=== PATIENT | female | born 1965 | race Caucasian/White ===

== ENCOUNTER 2022-11-30 06:56 | Observation (INO) ==
[2022-11-30] MEDS ORDERED: ONDANSETRON INJ 2 MG/ML 2 ML VIAL IV STA (07:19)
[2022-11-30] MEDS ORDERED: MoRPHine SULFATE 4 MG/ML 1 ML CARP\\VIAL IV STA (07:19)
[2022-11-30] MEDS ORDERED: AMPICILLIN/SULBACTAM SOD 3,000 MG in 0.9 % SODIUM CHLORIDE 100 ML IV STA (07:25)
[2022-11-30] MEDS ORDERED: SODIUM CHLORIDE 0.9% 1000ML 1,000 ML IV SCH (07:30)
[2022-11-30] MEDS ORDERED: SODIUM CHLORIDE 0.9% 1000ML 1,000 ML IV ONE (07:44)
[2022-11-30 07:56] LABS: Basophils # (auto) 0.01 K/uL (0-0.2); Basophils % (auto) 0.1 %; Eosinophils # (auto) 0.02 K/uL (0-0.50); Eosinophils % (auto) 0.2 %; Hematocrit (blood only) 44.7 % (37.0-47.0); Hemoglobin 16.3 g/dl (12.0-16.0); Immature Granulocytes # (auto) 0.05 K/uL (0.01-0.20); Immature Granulocytes % (auto) 0.4 %; Lymphocytes # (auto) 1.02 K/uL (1.2-3.4); Lymphocytes % (auto) 8.4 %; Mean Corpuscular Hemoglobin 32.7 pg (25.0-34.0); Mean Corpuscular Hgb Conc 36.5 g/dL (32.0-36.0); Mean Corpuscular Volume 89.6 fL (80.0-100.0); Mean Platelet Volume 9.7 fL (9.4-12.4); Monocytes # (auto) 0.91 K/uL (0.11-0.59); Monocytes % (auto) 7.5 %; Neutrophils # (auto) 10.09 K/uL (1.40-6.50); Neutrophils % (auto) 83.4 %; Platelet Count 233 K/uL (130-400); RDW Standard Deviation 39.1 fL (36.4-46.3); Red Blood Count 4.99 M/uL (4.20-5.40)
[2022-11-30 08:02] LABS: Albumin Level 4.3 gm/dl (3.4-5.0); Bilirubin,Total 1.2 mg/dl (0.2-1.0); Calcium 9.2 mg/dl (8.6-10.3); Est GFR (African American) 98.6 ml/min; Est GFR (Non-African American) 85.1 ml/min; Globulin 2.2 gm/dl (2.5-4.0); Potassium 3.6 mmol/L (3.5-5.1); Total Protein 6.5 gm/dl (6.0-8.3)
[2022-11-30] MEDS ORDERED: OPTIRAY 320 100ml IV ONE (08:25)
--- NOTE | 2022-11-30 08:43 | CT Scan Report ---
CT abd pelvis IV con only CLINICAL HISTORY: LLQ pain, diverticulitis now vomiting and inc pain TECHNIQUE: Helical axial images of the abdomen and pelvis were obtained and displayed. Automated dose lowering techniques and/or adjustment according to patient size were utilized for this exam. This e xam was performed with intravenous contrast. CT DOSE: 547.30 mGy.cm COMPARISON: Comparison is made to CT abdomen pelvis 11/28/2022 FINDINGS: Lower chest: Bibasilar atelectasis versus scarring is seen. Liver: Unremarkable. No focal lesions are seen. Gallbladder and biliary tree: No calcified gallstones. Normal caliber wall. No intra- or extrahepatic biliary ductal dilation. Pancreas: Unremarkable, no focal lesions. Spleen: Unremarkable. Adrenals: Unremarkable. Kidneys and ureters: Subcentimeter hypodensities are too small to characterize. Bladder: Diffuse homogeneous wall thickening is seen. Reproductive organs: Unremarkable. Bowel: A few diverticula are seen. Marcated focal bowel wall thickening and fat stranding is seen at the sigmoid flexure of the colon. This is mildly increased in conspicuity from prior exam. The append ix is unremarkable. Lymph nodes Retroperitoneal: Unremarkable. Pelvic: Unremarkable. Mesenteric: Mild ascites increased from prior exam. Peritoneum: Normal. Vessels: Unremarkable. Abdominal wall: Unremarkable. Bones: Degenerative changes in the visualized spine. IMPRESSION: Redemonstration of splenic flexure colonic inflammation with increased wall thickening and free fluid but no evidence of perforation diverticulitis versus a nonspecific colitis. ACT 112: Negative or not required by law. Electronically signed by: Jason Pedro M.D. 11/30/2022 8:42 AM
[2022-11-30] MEDS ORDERED: MoRPHine SULFATE 2 MG/ML CARP IV PRN (13:13)
[2022-11-30] MEDS ORDERED: ACETAMINOPHEN 10MG/ML Custom 1,000 MG in EMPTY BAG 0 ML IV PRN (13:13)
[2022-11-30] MEDS: SODIUM CHLORIDE 0.9% 1000ML 1,000 ML IV SCH ×2 (13:34→22:36)
[2022-11-30] MEDS: CIPROFLOXACIN / D5W 400 MG/200 ML BAG IV SCH (13:37)
--- NOTE | 2022-11-30 13:42 | Emergency Department Note ---
ED Provider Note CHIEF COMPLAINT: Abdominal pain, vomiting HISTORY OF PRESENT ILLNESS: This 57-year-old female patient presents to the emergency department with complaints of left-sided abdominal pain and vomiting over the last 24 hours. The patient was recently evaluated in the emergency department and diagnosed with diverticulitis. She was discharged on Augmentin, but states she is not able to keep the medication down. She has had diverticulitis in the past with a partial colectomy, but her last bout was approximately 8 years ago. REVIEW OF SYSTEMS: A review of systems was performed with positives and pertinent negatives listed in the history of present illness. 10 systems were reviewed and are otherwise negative. ALLERGIES: see below MEDICATIONS: see below PMH: see below SOCIAL HISTORY: see below DDx: Diverticulitis, bowel perforation, abscess, kidney stone, dehydration, viral gastroenteritis, colitis among others. PHYSICAL EXAM: Vital signs reviewed. General: Well-appearing 57-year-old female, in no significant distress. HEENT: No scleral icterus, PERRLA, neck supple. Moist mucous membranes Cardiovascular: Regular rate and rhythm, no extra sounds. Pulmonary: Clear to auscultation bilaterally, normal work of breathing. Abdomen: Soft, tender to palpation of the left mid abdomen, with diffuse generalized discomfort to palpation otherwise. Nondistended, positive bowel sounds. Musculoskeletal: Atraumatic, no peripheral edema. Neurologic: Patient awake alert and oriented x 3, speech is clear Skin: Warm, dry, no rash EMERGENCY DEPARTMENT COURSE/MDM: [] MONITORING: An order for cardiac monitoring was placed and the patient is noted to be in a [] at [] beats per minute. RADIOLOGY: EKG: DISPOSITION: Past Med/Surg History Medical History Arthritis History of diverticulitis Migraines Peripheral neuropathy "REASON FOR DULOXETINE" Temporomandibular joint disorder Surgical History History of colonoscopy History of hysterectomy S/P colon resection Family History Aunt Breast cancer Grandfather (Maternal) Colon cancer Father Esophageal cancer Brain cancer Mother Migraine headache Unknown Colon cancer Hypertension Other No family history of adverse response to anesthesia Denies family history of Ovarian cancer Prostate cancer Myocardial infarction Social History Smoking Status: Never smoker Second Hand Exposure: No; Do You Dip or Chew Tobacco: No; Hx Alcohol Use: Yes Alcohol type: hard liquor Preferred Language: Setswana Visual Impairment: No Limitations Hearing Ability: Normal 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 Beliefs That Will Affect Care: None marital status: Single Current Living Situation: Family Current Living Situation Comment: WITH [facility]W current occupational status: employed current occupation: Teacher Feels Safe at Home: Yes Childhood Exposure to Second-Hand Smoke: Yes Dental Care, Regularly: Yes Physical Activity Frequency: Daily Assistive Devices: Glasses Allergies Allergies Allergy/AdvReac Type Severity Reaction Status Date / Time No Known Allergies Allergy Mild Verified 10/10/22 09:17 Home Meds Home Medications Medication Instructions Recorded Confirmed cyanocobalamin (vitamin B-12) 1,000 mcg PO QAM 10/28/20 11/30/22 1,000 mcg tablet conjugated estrogens 0.625 mg/gram 0.625 mg vaginal 3XWK 11/28/22 11/30/22 vaginal cream (Premarin) amoxicillin 875 mg-potassium 0 tab PO BID 11/30/22 11/30/22 clavulanate 125 mg tablet valacyclovir 1 gram tablet See Rx Instructions .Route 11/30/22 11/30/22 .COMPLEX PRN other Previous Rx's Medication Instructions Recorded duloxetine 20 mg capsule,delayed 20 mg PO DAILY #90 caps 10/18/21 release sumatriptan succinate 50 mg tablet 50 mg PO Q2H PRN Migraine Headache 10/18/21 #27 tabs oxycodone 5 mg tablet 5 mg PO Q6H PRN pain #14 tabs 11/28/22 Results & Data (ED) Vital Signs Vital Signs - 24 hr 11/30/22 07:03 11/30/22 07:51 11/30/22 09:54 Temperature 36.5 C Temperature Source Temporal Artery Scan Pulse Rate 114 H 83 Pulse Rate [Right Finger] 70 Pulse Rhythm [Right Finger] Regular Pulse Strength [Right Finger] Normal Respiratory Rate 20 15 Respiratory Effort / Characteristics Non-Labored Spontaneous Non-Labored Respiratory Depth Normal Normal Respiratory Pattern Regular Blood Pressure 127/79 Blood Pressure [Right Arm] 119/81 Blood Pressure Mean 95 Blood Pressure Mean [Right Arm] 93 Blood Pressure Position [Right Arm] Lying Pulse Oximetry 97 98 Oxygen Delivery Method Room Air Room Air Sepsis Recent Fever Within 48 Hours No Sepsis New/Unexplained Change in Mental Status N/A Sepsis Action Taken by Nursing No Action Required Laboratory Data 11/30/22 07:22 11/30/22 07:22 Lab Results 11/30/22 11/30/22 Range/Units 07: 07:22 WBC 12.10 H (4.8-10.8) K/ul RBC 4.99 (4.20-5.40) M/uL Hgb 16.3 H (12.0-16.0) g/dl Hct 44.7 (37.0-47.0) % MCV 89.6 (80.0-100.0) fL MCH 32.7 (25.0-34.0) pg MCHC 36.5 H (32.0-36.0) g/dL RDW Std Deviation 39.1 (36.4-46.3) fL RDW Coeff of Tuyet 12.0 (11.5-14.5) % Plt Count 233 (130-400) K/uL MPV 9.7 (9.4-12.4) fL Immature Gran % (Auto) 0.4 % Neut % (Auto) 83.4 % Lymph % (Auto) 8.4 % [place] % (Auto) 7.5 % Eos % (Auto) 0.2 % Baso % (Auto) 0.1 % Neut # (Auto) 10.09 H (1.40-6.50) K/uL Lymph # (Auto) 1.02 L (1.2-3.4) K/uL [place] # (Auto) 0.91 H (0.11-0.59) K/uL Eos # (Auto) 0.02 (0-0.50) K/uL Baso # (Auto) 0.01 (0-0.2) K/uL Immature Gran # (Auto) 0.05 (0.01-0.20) K/uL Sodium 137 (136-145) mmol/L Potassium 3.6 (3.5-5.1) mmol/L Chloride 104 (98-107) mmol/L Carbon Dioxide 27 (21-32) mmol/L Anion Gap 6 (3-11) BUN 10 (6-23) mg/dl Creatinine 0.77 (0.6-1.2) mg/dl Est Cr Clr Drug Dosing 63.0 ml/min Est GFR ( Amer) 98.6 ml/min Est GFR (Non-Af Amer) 85.1 ml/min BUN/Creatinine Ratio 13.0 (10-20) Glucose 131 H (70-99(Fasting)) mg/dl Calcium 9.2 (8.6-10.3) mg/dl Total Bilirubin 1.2 H (0.2-1.0) mg/dl AST 16 (13-39) U/L ALT 9 (7-52) U/L Alkaline Phosphatase 54 (34-104) U/L Total Protein 6.5 (6.0-8.3) gm/dl Albumin 4.3 (3.4-5.0) gm/dl Globulin 2.2 L (2.5-4.0) gm/dl Albumin/Globulin Ratio 2.0 (0.9-2) Administered Medications Ciprofloxacin (Cipro / D5w) 400 mg in 200 mls @ 100 mls/hr IV Q12H KORY; Protocol Stop: 12/10/22 13:29 Last Admin: 11/30/22 13:37 Dose: 100 mls/hr Documented By: SAMIRA Sodium Chloride (Nss 1000ml) 1,000 mls @ 100 mls/hr IV .Q10H KORY Stop: 12/01/22 09:12 Last Admin: 11/30/22 13:34 Dose: 100 mls/hr Documented By: SAMIRA Discontinued Medications Sodium Chloride (Nss 1000ml) 1,000 mls @ 999 mls/hr IV .Q1H1M KORY Stop: 11/30/22 08:30 Last Infusion: 11/30/22 08:01 Dose: 0 mls/hr Documented By: Admin: 11/30/22 07:35 Dose: 999 mls/hr Documented By: SAMIRA Ampicillin Sodium/Sulbactam Sodium 3,000 mg/ Sodium Chloride 108 mls @ 200 mls/hr IV NOW STA; Protocol Stop: 11/30/22 07:57 Last Infusion: 11/30/22 08:35 Dose: 0 mls/hr Documented By: Admin: 11/30/22 08:00 Dose: 200 mls/hr Documented By: SAMIRA Sodium Chloride (Nss 1000ml) 1,000 mls @ 999 mls/hr IV .Q1H1M ONE Stop: 11/30/22 08:44 Last Infusion: 11/30/22 10:02 Dose: 0 mls/hr Documented By: Admin: 11/30/22 08:13 Dose: 999 mls/hr Documented By: SAMIRA Ioversol (Optiray 320 100ml) 93 ml IV ONCE ONE Stop: 11/30/22 08:26 Last Admin: 11/30/22 08:27 Dose: 93 ml Documented By: SHANE Morphine Sulfate (Morphine Sulfate 4 Mg/Ml 1 Ml Carp\\Vial) 4 mg IV NOW STA Stop: 11/30/22 07:20 Last Admin: 11/30/22 07:34 Dose: 4 mg Documented By: SAMIRA Ondansetron HCl (Ondansetron Inj 2 Mg/Ml 2 Ml Vial) 4 mg IV NOW STA Stop: 11/30/22 07:20 Last Admin: 11/30/22 07:34 Dose: 4 mg Documented By: SAMIRA Imaging Data Radiologist's Impression: Abdomen/Pelvis CT 11/30/22 08:04 CT abd pelvis IV con only CLINICAL HISTORY: LLQ pain, diverticulitis now vomiting and inc pain TECHNIQUE: Helical axial images of the abdomen and pelvis were obtained and displayed. Automated dose lowering techniques and/or adjustment according to patient size were utilized for this exam. This exam was performed with intravenous contrast. CT DOSE: 547.30 mGy.cm COMPARISON: Comparison is made to CT abdomen pelvis 11/28/2022 FINDINGS: Lower chest: Bibasilar atelectasis versus scarring is seen. Liver: Unremarkable. No focal lesions are seen. Gallbladder and biliary tree: No calcified gallstones. Normal caliber wall. No intra- or extrahepatic biliary ductal dilation. Pancreas: Unremarkable, no focal lesions. Spleen: Unremarkable. Adrenals: Unremarkable. Kidneys and ureters: Subcentimeter hypodensities are too small to characterize. Bladder: Diffuse homogeneous wall thickening is seen. Reproductive organs: Unremarkable. Bowel: A few diverticula are seen. Marcated focal bowel wall thickening and fat stranding is seen at the sigmoid flexure of the colon. This is mildly increased in conspicuity from prior exam. The appendix is unremarkable. Lymph nodes Retroperitoneal: Unremarkable. Pelvic: Unremarkable. Mesenteric: Mild ascites increased from prior exam. Peritoneum: Normal. Vessels: Unremarkable. Abdominal wall: Unremarkable. Bones: Degenerative changes in the visualized spine. IMPRESSION: Redemonstration of splenic flexure colonic inflammation with increased wall thickening and free fluid but no evidence of perforation diverticulitis versus a nonspecific colitis. ACT 112: Negative or not required by law. Electronically signed by: Jason Pedro M.D. 11/30/2022 8:42 AM Discharge Plan Visit Data Chief Complaint: Abdominal Pain Stated Complaint: VOMITING,ABD PAIN,DIVERTICULITIS ED Provider: Chichi Gil Patient Disposition: Admitted As Inpatient Discharge Instructions Interventions: ED Discharge Assessment Last Done: 11/30/22 13:12
[2022-11-30] MEDS: ENOXAPARIN INJ 40 MG/0.4 ML SYR SQ SCH (13:55)
[2022-11-30] MEDS: metroNIDAZOLE 500 MG/100 ML BAG IV SCH ×2 (15:45→20:39)
--- NOTE | 2022-11-30 16:17 | History & Physical Report ---
Date of Service November 30, 2022 Assessment & Plan (1) Diverticulitis: Plan: acute left reticulitis failing outpatient therapy due to nausea vomiting observational status continue hydration parenteral pain medication parenteral nausea medication we will have Cipro and Flagyl history of depression and anxiety continue duloxetine chemoprophylaxis for DVT prevention Admission and Anticipated Discharge Date Admission Date: November 30, 2022 History of Present Illness Primary Care Provider: FUENTES García patient presented after being intolerant of oral antibiotics at home for her diverticulitis. Patient has a history of diverticulitis with colonic resection [address] [facility] where she was referred for pericolonic abscess by her report at home the patient was nauseous and cannot keep down her Augmentin. She is having liquid bowel movements and having increased pain in the emergency department she had mild leukocytosis and abdominal discomfort correlating with her splenic flexure diverticuli as noted on imaging otherwise patient has no complaints or problems with other organ systems has no chest pain pressure shortness of breath Allergies Allergy/AdvReac Type Severity Reaction Status Date / Time No Known Allergies Allergy Mild Verified 10/10/22 09:17 Home Medications Medication Instructions Recorded Confirmed Type cyanocobalamin (vitamin B-12) 1,000 mcg PO QAM 10/28/20 11/30/22 History 1,000 mcg tablet duloxetine 20 mg capsule,delayed 20 mg PO DAILY #90 caps 10/18/21 11/30/22 Rx release sumatriptan succinate 50 mg tablet 50 mg PO Q2H PRN Migraine Headache 10/18/21 11/30/22 Rx #27 tabs conjugated estrogens 0.625 mg/gram 0.625 mg vaginal 3XWK 11/28/22 11/30/22 History vaginal cream (Premarin) oxycodone 5 mg tablet 5 mg PO Q6H PRN pain #14 tabs 11/28/22 11/30/22 Rx amoxicillin 875 mg-potassium 0 tab PO BID 11/30/22 11/30/22 History clavulanate 125 mg tablet valacyclovir 1 gram tablet See Rx Instructions .Route 11/30/22 11/30/22 History .COMPLEX PRN other Past Med/Surg History Medical History Arthritis History of diverticulitis Migraines Peripheral neuropathy "REASON FOR DULOXETINE" Temporomandibular joint disorder Surgical History History of colonoscopy History of hysterectomy S/P colon resection Family History Aunt Breast cancer Grandfather (Maternal) Colon cancer Father Esophageal cancer Brain cancer Mother Migraine headache Unknown Colon cancer Hypertension Other No family history of adverse response to anesthesia Denies family history of Ovarian cancer Prostate cancer Myocardial infarction Social History Smoking Status: Never smoker Second Hand Exposure: No; Do You Dip or Chew Tobacco: No; Hx Alcohol Use: Yes Alcohol type: hard liquor Preferred Language: Guamanian Visual Impairment: No Limitations Hearing Ability: Normal 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 Beliefs That Will Affect Care: None marital status: Single Current Living Situation: Family Current Living Situation Comment: WITH NEPHEW current occupational status: employed current occupation: Teacher Feels Safe at Home: Yes Childhood Exposure to Second-Hand Smoke: Yes Dental Care, Regularly: Yes Physical Activity Frequency: Daily Assistive Devices: Glasses Review of Systems Review of Systems: Monitor distress and fatigue no headache, no visual changes no speech or swallowing issues no chest pain, pressure or palpitations no shortness of breath, cough or wheezes left upper quadrant abdominal pain, associate nausea or vomiting, liquid bowel movement no dysuria, hematuria or frequency no focal joint pain or swelling no back pain, CVA tenderness or radicular pain no bruising, bleeding or rashes no focal signs of weakness or numbness or altered sensation no complaints of anxiety or depression.. Physical Exam Physical Exam: the patient appeared Comfortable after being medicated Vital signs as documented. Head exam is normocephalic atraumatic Neck is without JVD, thyromegaly, or carotid bruits. Lungs are clear to auscultation, no focal loss of breath sounds Cardiac exam, Rhythm is regular.. No murmurs, rubs or gallops. Abdominal exam reveals hypoactive bowel sounds, soft LUQ tenderness in luq no rebound no guarding Extremities are nonedematous and both pedal pulses are present Neurologic exam is alert and oriented, no focal loss of strength or sensation Skin is without bruises or rashes Psychologically is without concerns for anxiety or depression.. Results & Data Results & Data Vital Signs (Past 12 Hours) Vital Signs Temp Pulse Pulse Resp BP BP Pulse Ox 11/30/22 15:56 76 11/30/22 15:34 84 15 126/73 97 11/30/22 11:57 77 11/30/22 11:45 82 18 111/85 97 11/30/22 09:54 70 15 119/81 98 11/30/22 07:51 83 11/30/22 07:03 97.7 F 114 H 20 127/79 97 O2 Del Method 11/30/22 15:56 11/30/22 15:34 Room Air 11/30/22 11:57 11/30/22 11:45 Room Air 11/30/22 09:54 Room Air 11/30/22 07:51 11/30/22 07:03 Room Air Laboratory Results reviewed CBC reviewed chemistry reviewed results of CT scan discussed case with Dr. Gil Code Status & VTE Plan VTE Prophylaxis Plan VTE Prophylaxis will be ordered: Yes PG Care Time/CCT Total # of Minutes Spent Total Time Spent with Patient: Total time spent is greater than 50% in coordination of care (as documented) at patient's floor/unit and/or counseling patient: Coding Level of Care Code 72686 INT INP/OBS CARE 2/55MIN Diagnoses Diverticulitis K57.92
[2022-11-30] MEDS: ACETAMINOPHEN 1,000 MG/100 ML VIAL IV PRN (22:36)
[2022-12-01] MEDS: CIPROFLOXACIN / D5W 400 MG/200 ML BAG IV SCH ×2 (01:11→13:05)
[2022-12-01] MEDS: metroNIDAZOLE 500 MG/100 ML BAG IV SCH ×3 (05:00→20:50)
[2022-12-01 06:47] LABS: Hematocrit (blood only) 35.3 % (37.0-47.0); Hemoglobin 12.5 g/dl (12.0-16.0); Mean Corpuscular Hemoglobin 32.4 pg (25.0-34.0); Mean Corpuscular Hgb Conc 35.4 g/dL (32.0-36.0); Mean Corpuscular Volume 91.5 fL (80.0-100.0); Mean Platelet Volume 9.5 fL (9.4-12.4); Platelet Count 173 K/uL (130-400); RDW Coefficient of Variation 12.1 % (11.5-14.5); RDW Standard Deviation 40.5 fL (36.4-46.3); Red Blood Count 3.86 M/uL (4.20-5.40); White Blood Count 6.07 K/ul (4.8-10.8)
[2022-12-01 08:05] LABS: Albumin Level 3.4 gm/dl (3.4-5.0); BUN Creatinine Ratio 6.8 (10-20); Bilirubin,Total 0.8 mg/dl (0.2-1.0); Calcium 8.1 mg/dl (8.6-10.3); Creatinine Clr Calc Pharmacy 66.4 ml/min; Est GFR (African American) 105.2 ml/min; Est GFR (Non-African American) 90.8 ml/min; Globulin 1.7 gm/dl (2.5-4.0); Potassium 3.5 mmol/L (3.5-5.1); Total Protein 5.1 gm/dl (6.0-8.3)
[2022-12-01] MEDS: DULoxetine HCL 20 MG CAP PO SCH (08:40)
[2022-12-01] MEDS: ONDANSETRON INJ 2 MG/ML 2 ML VIAL IV PRN (12:13)
[2022-12-01] MEDS ORDERED: SUMAtriptan succinate 50 MG TAB PO ONE (12:19)
[2022-12-01] MEDS ORDERED: KETOROLAC TROMETHAMINE 15 MG/ML VIAL IV ONE (12:38)
[2022-12-01] MEDS ORDERED: SUMAtriptan succinate 6 MG/0.5 ML VIAL SQ STA (12:40)
[2022-12-01] MEDS: ENOXAPARIN INJ 40 MG/0.4 ML SYR SQ SCH (13:06)
--- NOTE | 2022-12-01 17:56 | Hospitalist Progress Note ---
Date of Service December 01, 2022 Assessment & Plan (1) Diverticulitis: Plan: acute left reticulitis failing outpatient therapy due to nausea vomiting observational status continues hydration parenteral pain medication parenteral nausea medication we will have Cipro and Flagyl hopeful if nausea resolved may go home, nausea on the from migraine Migraine is typical for pt, did vomit, treated with imitrex, and toradol with resolution history of depression and anxiety continue duloxetine chemoprophylaxis for DVT prevention Admission and Anticipated Discharge Date Admission Date: November 30, 2022 Subjective pt has migraine headache, n/v, has improved abdominal pain. Physical Exam Physical Exam: PT is with discomfort from headache, no visual changes or focal neurological impairment Lungs are clear to auscultation, no focal loss of breath sounds Cardiac exam, Rhythm is regular.. No murmurs, rubs or gallops. Abdominal exam reveals hypoactive bowel sounds, soft LUQ tenderness, improved no rebound no guarding Neurologic exam is alert and oriented, no focal loss of strength or sensation Psychologically is without concerns for anxiety or depression.. Results & Data Results & Data Vital Signs (Past 12 Hours) Vital Signs Temp Pulse Resp BP Pulse Ox O2 Del Method 12/01/22 13:43 97.9 F 65 16 112/74 98 Room Air 12/01/22 07:58 97.9 F 61 16 110/65 98 Room Air Laboratory Results review cbc review prp PG Care Time/CCT Total # of Minutes Spent Total Time Spent with Patient: Total time spent is greater than 50% in coordination of care (as documented) at patient's floor/unit and/or counseling patient: Coding Level of Care Code 00503 SUB INP/OBS CARE 2/35MIN Diagnoses Diverticulitis K57.92
[2022-12-01] MEDS: ACETAMINOPHEN 1,000 MG/100 ML VIAL IV PRN (21:58)
[2022-12-02] MEDS: CIPROFLOXACIN / D5W 400 MG/200 ML BAG IV SCH ×2 (00:35→13:56)
[2022-12-02] MEDS: metroNIDAZOLE 500 MG/100 ML BAG IV SCH ×3 (05:38→20:44)
[2022-12-02] MEDS: DULoxetine HCL 20 MG CAP PO SCH (08:33)
[2022-12-02] MEDS: ACETAMINOPHEN 1,000 MG/100 ML VIAL IV PRN (08:59)
[2022-12-02] MEDS ORDERED: KETOROLAC TROMETHAMINE 15 MG/ML VIAL IV ONE (10:20)
[2022-12-02] MEDS ORDERED: SUMAtriptan succinate 50 MG TAB PO ONE (10:21)
[2022-12-02 10:40] LABS: Hematocrit (blood only) 37.3 % (37.0-47.0); Hemoglobin 13.6 g/dl (12.0-16.0); Mean Corpuscular Hemoglobin 32.6 pg (25.0-34.0); Mean Corpuscular Hgb Conc 36.5 g/dL (32.0-36.0); Mean Corpuscular Volume 89.4 fL (80.0-100.0); Mean Platelet Volume 9.5 fL (9.4-12.4); Platelet Count 190 K/uL (130-400); RDW Coefficient of Variation 12.1 % (11.5-14.5); Red Blood Count 4.17 M/uL (4.20-5.40); White Blood Count 4.08 K/ul (4.8-10.8)
[2022-12-02 10:47] LABS: Albumin Globulin Ratio 2.1 (0.9-2); BUN Creatinine Ratio 7.9 (10-20); Bilirubin,Total 0.8 mg/dl (0.2-1.0); Creatinine Clr Calc Pharmacy 63.8 ml/min; Est GFR (African American) 100.2 ml/min; Est GFR (Non-African American) 86.5 ml/min; Globulin 1.9 gm/dl (2.5-4.0); Potassium 3.5 mmol/L (3.5-5.1); Total Protein 5.9 gm/dl (6.0-8.3)
[2022-12-02] MEDS: ONDANSETRON INJ 2 MG/ML 2 ML VIAL IV PRN (13:53)
[2022-12-02] MEDS: ENOXAPARIN INJ 40 MG/0.4 ML SYR SQ SCH (13:56)
--- NOTE | 2022-12-02 15:01 | Hospitalist Progress Note ---
Date of Service December 02, 2022 Assessment & Plan (1) Diverticulitis: Plan: acute left reticulitis failing outpatient therapy due to nausea vomiting observational status continues hydration parenteral pain medication parenteral nausea medication we will have Cipro and Flagyl persistent N/V and headaches, if persist will consider re imaging abd, lab reports are improved Migraine is typical for pt, did vomit, treated once adain wiith imitrex, and toradol with resolution history of depression and anxiety continue duloxetine chemoprophylaxis for DVT prevention Admission and Anticipated Discharge Date Admission Date: November 30, 2022 Subjective persistent daily headaches and post prandial nausea has improvement in abdominal pain Physical Exam Physical Exam: PT is with minor discomfort from headache, aborted with imitrex and toradol Lungs are clear to auscultation, no focal loss of breath sounds Cardiac exam, Rhythm is regular.. No murmurs, rubs or gallops. Abdominal exam reveals hypoactive bowel sounds, soft LUQ tenderness, improved no rebound no guarding Neurologic exam is alert and oriented, no focal loss of strength or sensation Psychologically is without concerns for anxiety or depression.. Results & Data Results & Data Vital Signs (Past 12 Hours) Vital Signs Temp Pulse Resp BP Pulse Ox O2 Del Method 12/02/22 05:51 98.1 F 64 16 119/83 98 Room Air Laboratory Results reviewed cbc reviewed chemistry PG Care Time/CCT Total # of Minutes Spent Total Time Spent with Patient: Total time spent is greater than 50% in coordination of care (as documented) at patient's floor/unit and/or counseling patient: Coding Level of Care Code 09631 SUB INP/OBS CARE 2/35MIN Diagnoses Diverticulitis K57.92
[2022-12-03] MEDS: CIPROFLOXACIN / D5W 400 MG/200 ML BAG IV SCH ×2 (00:44→12:40)
[2022-12-03] MEDS: metroNIDAZOLE 500 MG/100 ML BAG IV SCH ×2 (05:22→12:40)
[2022-12-03] MEDS: DULoxetine HCL 20 MG CAP PO SCH (08:27)
[2022-12-03 09:37] LABS: Hematocrit (blood only) 36.6 % (37.0-47.0); Hemoglobin 13.2 g/dl (12.0-16.0); Mean Corpuscular Hemoglobin 32.3 pg (25.0-34.0); Mean Corpuscular Hgb Conc 36.1 g/dL (32.0-36.0); Mean Corpuscular Volume 89.5 fL (80.0-100.0); Mean Platelet Volume 9.5 fL (9.4-12.4); Platelet Count 189 K/uL (130-400); RDW Coefficient of Variation 11.9 % (11.5-14.5); RDW Standard Deviation 38.2 fL (36.4-46.3); Red Blood Count 4.09 M/uL (4.20-5.40); White Blood Count 4.15 K/ul (4.8-10.8)
[2022-12-03 09:54] LABS: Albumin Globulin Ratio 2.2 (0.9-2); BUN Creatinine Ratio 7.1 (10-20); Bilirubin,Total 0.8 mg/dl (0.2-1.0); Calcium 8.7 mg/dl (8.6-10.3); Creatinine Clr Calc Pharmacy 57.7 ml/min; Est GFR (African American) 88.8 ml/min; Est GFR (Non-African American) 76.6 ml/min; Globulin 1.8 gm/dl (2.5-4.0); Potassium 2.9 mmol/L (3.5-5.1); Total Protein 5.8 gm/dl (6.0-8.3)
[2022-12-03] MEDS: ENOXAPARIN INJ 40 MG/0.4 ML SYR SQ SCH (12:40)
--- NOTE | 2022-12-03 16:12 | Discharge Summary ---
Date of Service December 03, 2022 Admission HPI Per Admitting Provider patient presented after being intolerant of oral antibiotics at home for her diverticulitis. Patient has a history of diverticulitis with colonic resection 8 years ago at [facility] where she was referred for pericolonic abscess by her report at home the patient was nauseous and cannot keep down her Augmentin. She is having liquid bowel movements and having increased pain in the emergency department she had mild leukocytosis and abdominal discomfort correlating with her splenic flexure diverticuli as noted on imaging otherwise patient has no complaints or problems with other organ systems has no chest pain pressure shortness of breath Principal Diagnosis diverticulitis consitpation Discharge Exam abd is with normal bowel sounds and soft , non tender, does not feel full Discharge Data Allergies Allergy/AdvReac Type Severity Reaction Status Date / Time No Known Allergies Allergy Mild Verified 10/10/22 09:17 Consultations 11/30/22 09:41 ED Decision to Admit Stat Ordered Studies 11/30/22 08:04 CT Abd and Pelvis [CT abd pelvis IV con only] Stat Hospital Course (1) Diverticulitis: acute left sided diverticulitis failing outpatient therapy due to nausea vomiting observational status, hydration parenteral pain medication parenteral nausea medication improved and will discharge on Cipro and Flagyl, due to late discharge home medications given pt was able to tolerate low residual diet prior to discharge Migraine is typical for pt, did vomit, treated once adain wiith imitrex, and toradol with resolution history of depression and anxiety continue duloxetine Total Time Total Time Spent Total Time Spent (In Minutes): It required greater than 30 minutes to prepare this patient for discharge Discharge Plan Discharge Items Patient Disposition: Home - Self-Care Reason For Visit: VOMITING,ABD PAIN,DIVERTICULITIS Discharge Diagnosis: Diverticulitis nausea and vomiting migraine headache Activity: Resume your previous activity Non-emergency contact: Primary Care Provider Call non-emergency contact if: your symptoms worsen Follow-up/Referrals: Berta Acuña CRNP [Primary Care Provider] - Diet: Low Fiber Addtl Attending Provider Instructions: Diverticulitis occurs when pouches form in the wall of the colon and become inflamed or infected. It can be very painful. Doctors aren't sure what causes diverticulitis. There is no proof that foods such as nuts, seeds, or berries cause it or make it worse. A low-fibre diet may cause the colon to work harder to push stool forward. Pouches may form because of this extra work. It may be hard to think about healthy eating while you're in pain. But as you recover, you might think about how you can use healthy eating for overall better health. Healthy eating may help you avoid future attacks. How can you care for yourself at home? * Drink plenty of fluids. If you have kidney, heart, or liver disease and have to limit fluids, talk with your doctor before you increase the amount of fluids you drink. * Stay with liquids or a bland diet (plain rice, bananas, dry toast or crackers, applesauce) until you are feeling better. Then you can return to regular foods and slowly increase the amount of fibre in your diet. * Use a heating pad set on low on your belly to relieve mild cramps and pain. * Get extra rest until you are feeling better. * Be safe with medicines. Read and follow all instructions on the label. * If the doctor gave you a prescription medicine for pain, take it as prescribed. * If you are not taking a prescription pain medicine, ask your doctor if you can take an [id number] medicine. * Please complete your antibiotics. . Do not stop taking them just because you feel better. You need to take the full course of antibiotics. * Do not use laxatives or enemas unless your doctor tells you to use them. When should you call for help? * You have a fever. * You are vomiting. * You have new or worse belly pain. * You cannot pass stools or gas. Addtl [employer] Provider Instructions: for your constipation, consider getting some suppositories to try first before you use miralax or senna by mouth Pending Studies at Discharge: No Stand-Alone Forms: My [facility] HomeStay, Smoking Cessation Medications and DC Order Prescriptions: New ciprofloxacin HCl [Cipro] 500 mg tablet 500 mg PO BID Qty: 20 0RF metronidazole 500 mg tablet 500 mg PO TID Qty: 30 0RF Continued duloxetine 20 mg capsule,delayed release(DR/EC) 20 mg PO DAILY Qty: 90 3RF Patient Comments: QAM sumatriptan succinate 50 mg tablet 50 mg PO Q2H PRN (Reason: Migraine Headache) Qty: 27 3RF Rx Instructions: Max 100mg daily cyanocobalamin (vitamin B-12) 1,000 mcg Tablet 1,000 mcg PO QAM valacyclovir 1 gram tablet See Rx Instructions .ROUTE .COMPLEX PRN (Reason: other) Rx Instructions: as directed Premarin 0.625 mg/gram cream 0.625 mg PV [id number] Rx Instructions: 0.625 mg PV 4 times a week for two weeks; try 3 times a week after oxycodone 5 mg tablet 5 mg PO Q6H PRN (Reason: pain) Qty: 14 0RF Discontinued amoxicillin-pot clavulanate 875-125 mg tablet 0 tab PO BID Rx Instructions: Was on it, per pt they are taking her off while admitted. Discharge Orders: Discharge Order (Routine); Ordered 12/03/22 Ordered By: Ronak Mcduffie Admission Data Admit Date/Time: 11/30/22 10:02 Attending Provider: Ronak Mcduffie Admit Provider: Ronak Mcduffie Primary Care Provider: Berta Acuña Other Providers: Ronak Mcduffie Coding Level of Care Code 67487 INP/OBS DISCH >30 MIN Diagnoses Diverticulitis K57.92
[2022-12-03] MEDS: bisacodyL 10 MG SUPP PR STA ×2 (17:46→18:38)
[2022-12-03] MEDS ORDERED: bisacodyL 10 MG SUPP PR ONE (18:32)
[2022-12-03] MEDS ORDERED: metroNIDAZOLE 500 MG TAB PO SCH ×2 (21:00)
[2022-12-03] MEDS ORDERED: CIPROFLOXACIN 500MG HOME PACK PO SCH (21:00)
== END 2022-12-03 18:39 | disposition home or self-care (01) ==
LOC: EDINP 06:56 → ED 06:56 → EDINP 13:12 → 3N 18:04